=== PATIENT | male | born 1955 | race Caucasian/White ===

== ENCOUNTER 2018-11-02 20:36 | Observation (INO) ==
[2018-11-02] MEDS ORDERED: Isovue-370 500 ML BOTTLE IVP ONE (21:30)
[2018-11-02] MEDS ORDERED: 0.9 % Sodium Chloride 1,000 ML IVC ONE (21:45)
[2018-11-02 21:53] LABS: Basophils # 0.1 K/mcL (0.0-0.2); Basophils % 0.6 %; Eosinophils # 0.3 K/mcL (0.0-0.6); Hematocrit 46.3 % (37.5-50.1); Immature Granulocytes % 0.6 % (0-4); Lymphocytes # 4.3 K/mcL (0.6-4.6); Lymphocytes % 27.2 %; Mean Corpuscular HGB Conc 32.4 g/dL (31.6-35.5); Mean Corpuscular Hemoglobin 26.6 pg (28.0-33.3); Mean Corpuscular Volume 82.1 fL (83.0-100.0); Mean Platelet Volume 10.2 fL (9.4-12.4); Monocytes % 6.6 %; Neutrophils # 9.9 K/mcL (1.6-8.9); Platelet Count 376 K/mcL (140-400); Red Blood Count 5.64 M/mcL (4.19-5.50); Red Cell Distribution Width 13.7 % (11.5-14.5); White Blood Count 15.7 K/mcL (4.3-11.1)
[2018-11-02 22:14] LABS: BUN/Creatinine Ratio 15 (6-26); Blood Urea Nitrogen 13 mg/dL (8-23); Calcium 9.8 mg/dL (8.6-10.3); Carbon Dioxide 25 mEq/L (23-29); Chloride 101 mEq/L (98-107); Glucose 182 mg/dL (70-105); Osmolality,Calculated 287 (280-300); Potassium 3.3 mEq/L (3.5-5.1); Sodium 136 mEq/L (136-145); Troponin I < 0.03 ng/mL (< 0.04); eGFR For African Americans > 60 (> 60); eGFR For Non-African Americans > 60 (> 60)
[2018-11-03] MEDS ORDERED: *HR* FentaNYL (PF) 100 MCG/2 ML VIAL IVP ONE (00:10)
[2018-11-03] MEDS ORDERED: Ondansetron 4 MG/2 ML VIAL IVP ONE (00:10)
[2018-11-03] MEDS ORDERED: Nitroglycerin 0.4 MG TAB.SUBL SL PRN (00:20)
[2018-11-03] MEDS ORDERED: Aspirin 325 MG TABLET PO ONE (00:20)
[2018-11-03] MEDS ORDERED: D5% in Water 1,000 ML IVC PRN (02:56)
[2018-11-03] MEDS ORDERED: Dextrose Gel 15 GM/37.5 ML TUBE PO PRN ×2 (02:56)
[2018-11-03] MEDS ORDERED: Acetaminophen 325 MG TABLET PO PRN (02:56)
[2018-11-03] MEDS ORDERED: Naloxone 0.4 MG/ML INJ IVP PRN (02:56)
[2018-11-03] MEDS ORDERED: *HR* Dextrose 50 % in Water (Syg) 50 ML SYRINGE IVP PRN (02:56)
[2018-11-03] MEDS ORDERED: 0.9 % Sodium Chloride w KCl 20 MEQ/1,000 ML MLS IVC SCH (03:00)
[2018-11-03] MEDS ORDERED: *HR* OxyCODONE Immed Rel 15 MG TABLET PO PRN (03:02)
[2018-11-03] MEDS: clonazePAM 1 MG TABLET PO SCH ×2 (03:40→12:47)
[2018-11-03 04:51] LABS: Basophils # 0.1 K/mcL (0.0-0.2); Basophils % 0.5 %; Eosinophils # 0.2 K/mcL (0.0-0.6); Eosinophils % 1.4 %; Hematocrit 41.6 % (37.5-50.1); Immature Granulocytes % 0.5 % (0-4); Lymphocytes # 3.9 K/mcL (0.6-4.6); Mean Corpuscular HGB Conc 31.5 g/dL (31.6-35.5); Mean Corpuscular Volume 82.5 fL (83.0-100.0); Mean Platelet Volume 9.6 fL (9.4-12.4); Monocytes % 5.9 %; Neutrophils # 11.7 K/mcL (1.6-8.9); Platelet Count 349 K/mcL (140-400); Red Blood Count 5.04 M/mcL (4.19-5.50); Red Cell Distribution Width 13.6 % (11.5-14.5); Segmented Neutrophils % 68.7 %
[2018-11-03 04:58] LABS: Hemoglobin 13.1 g/dL (12.9-16.9)
[2018-11-03 05:07] LABS: Alanine Aminotransferase 9 Units/L (7-52); Albumin 3.7 g/dL (3.5-5.7); Albumin/Globulin Ratio 1.3 (1.1-2.2); Alkaline Phosphatase 51 Units/L (34-104); Aspartate Amino Transferase 12 Units/L (13-39); BUN/Creatinine Ratio 25 (6-26); Bilirubin,Total 0.2 mg/dL (0.3-1.0); Blood Urea Nitrogen 16 mg/dL (8-23); Calcium 8.9 mg/dL (8.6-10.3); Carbon Dioxide 24 mEq/L (23-29); Chloride 105 mEq/L (98-107); Chol/HDL Ratio 4.5 (0-4.9); Cholesterol 167 mg/dL (< 200); Globulin 2.8 g/dL (2.4-3.5); Glucose 98 mg/dL (70-105); HDL Cholesterol 37 mg/dL (40-59); LDL Cholesterol,Calculated 115 mg/dL (0-99); Magnesium 1.7 mg/dL (1.6-2.6); Osmolality,Calculated 283 (280-300); Potassium 3.7 mEq/L (3.5-5.1); Sodium 136 mEq/L (136-145); Total Protein 6.5 g/dL (6.4-8.9); Triglycerides 74 mg/dL (< 150); eGFR For African Americans > 60 (> 60); eGFR For Non-African Americans > 60 (> 60)
[2018-11-03 05:09] LABS: INR 1.2; Prothrombin Time 13.6 Seconds (9.4-12.1)
[2018-11-03] MEDS: Insulin LISPRO 300 UNITS/3 ML VIAL SQ SCH ×2 (05:39→12:51)
[2018-11-03] MEDS ORDERED: Gabapentin 400 MG CAPSULE PO SCH (09:00)
[2018-11-03] MEDS ORDERED: *HR* Rivaroxaban 15 MG TABLET PO SCH (09:00)
[2018-11-03 09:17] LABS: Estimated Average Glucose 278 mg/dl
[2018-11-03] MEDS ORDERED: Regadenoson 0.4 MG/5 ML SYRINGE IVP ONE ×2 (10:51→11:15)
[2018-11-03 15:24] VITALS: BP 134/78
== END 2018-11-03 16:06 | disposition home or self-care (01) ==
LOC: 3BNU 20:36 → EMEROOARM 20:36 → 3BNU 11-03 02:30
PROVIDERS: ADMIT Internal Medicine Nephrology; ATTEND Internal Medicine Nephrology

== ENCOUNTER 2019-12-07 11:03 | Inpatient (IN) ==
[~2019-12-07 11:03] MED LIST: Acetaminophen IV 1,000 MG/100 ML INFUS..BTL IVPB ONE; Famotidine 20 MG/2 ML VIAL IVP ONE; Gabapentin 300 MG CAPSULE PO ONE; Vancomycin 1,500 MG/265 ML IV.SOLN IVPB ONE
[2019-12-07] MEDS ORDERED: *HR* Succinylcholine 200 MG/10 ML VIAL IVP ONE (11:39)
[2019-12-07] MEDS ORDERED: *HR* FentaNYL (PF) 100 MCG/2 ML VIAL ONE (11:39)
[2019-12-07] MEDS ORDERED: Dexamethasone 4 MG/ML VIAL ONE (11:39)
[2019-12-07] MEDS ORDERED: Lidocaine -MPF 2% 2 ML VIAL ONE (11:39)
[2019-12-07] MEDS ORDERED: *HR* Propofol 200 MG/20 ML VIAL IVP ONE ×2 (11:39→14:23)
[2019-12-07] MEDS ORDERED: Lidocaine HCL 4 ML Topical Solution (Laryng-O-Jet Kit Sterile Pak) TP ONE (11:39)
[2019-12-07] MEDS ORDERED: Ondansetron 4 MG/2 ML VIAL ONE (11:39)
[2019-12-07] MEDS ORDERED: *HR* HYDROmorphone (PF) 1 MG/ML SYRINGE IVP PRN (11:43)
[2019-12-07] MEDS ORDERED: *HR* PHENYLEPHRINE 1,000 MCG/10 ML SYRINGE IVP ONE ×2 (11:43→13:49)
[2019-12-07] MEDS ORDERED: Ondansetron 4 MG/2 ML VIAL IVP PRN ×2 (11:43→15:13)
[2019-12-07] MEDS ORDERED: *HR* Labetalol 20 MG/4 ML SYRINGE IVP PRN (11:43)
[2019-12-07] MEDS ORDERED: *HR* Promethazine 25 MG/ML VIAL IVP PRN (11:43)
[2019-12-07] MEDS ORDERED: *HR* OxyCODONE Immed Rel 5 MG TABLET PO PRN (11:43)
[2019-12-07] MEDS ORDERED: Ringers Solution, Lactated 1,000 ML IVC SCH (11:45)
[2019-12-07] MEDS ORDERED: Famotidine 20 MG/2 ML VIAL IVP ONE (12:00)
[2019-12-07] MEDS ORDERED: Acetaminophen IV 1,000 MG/100 ML INFUS..BTL IVPB ONE (12:00)
[2019-12-07] MEDS ORDERED: Gabapentin 300 MG CAPSULE PO ONE (12:00)
[2019-12-07] MEDS ORDERED: *HR* Midazolam HCl 2 MG/2 ML VIAL ONE (12:52)
[2019-12-07] MEDS ORDERED: Ropivacaine/PF 0.5% 30 ML VIAL ONE (12:56)
[2019-12-07] MEDS ORDERED: ROPIVACAINE/PF/NS 0.25% 1 EACH SYRINGE INTRAART ONE (12:56)
[2019-12-07] MEDS ORDERED: Dulaglutide [Trulicity] 1.5 MG SQ SCH (15:13)
[2019-12-07] MEDS ORDERED: D5% in Water 1,000 ML IVC PRN (15:13)
[2019-12-07] MEDS ORDERED: Naloxone 0.4 MG/ML INJ IVP PRN (15:13)
[2019-12-07] MEDS ORDERED: *HR* OxyCODONE/APAP 5/325 TABLET PO PRN (15:13)
[2019-12-07] MEDS ORDERED: *HR* Dextrose 50 % in Water (Vial) 50 ML VIAL IVP PRN (15:13)
[2019-12-07] MEDS ORDERED: MOM Conc 10 ML UD.LIQ PO PRN (15:13)
[2019-12-07] MEDS ORDERED: Sennosides 8.6 MG TABLET PO PRN (15:13)
[2019-12-07] MEDS ORDERED: Dextrose Gel 15 GM/37.5 ML TUBE PO PRN ×2 (15:13)
[2019-12-07 15:36] LABS: Hematocrit 42.5 % (37.5-50.1); Hemoglobin 13.6 g/dL (12.9-16.9)
[2019-12-07] MEDS: *HR* Enoxaparin 30 MG/0.3 ML SYRINGE SQ SCH (17:55)
[2019-12-07] MEDS: Insulin LISPRO 300 UNITS/3 ML VIAL SQ SCH ×2 (17:56→20:48)
[2019-12-07] MEDS ORDERED: *HR* Enoxaparin 30 MG/0.3 ML SYRINGE SQ SCH (18:00)
[2019-12-07] MEDS: *HR* OxyCODONE Immed Rel 5 MG TABLET PO PRN ×2 (18:19→22:18)
[2019-12-07] MEDS: clonazePAM 1 MG TABLET PO SCH (20:47)
[2019-12-07] MEDS: Gabapentin 400 MG CAPSULE PO SCH (20:47)
[2019-12-07] MEDS: Insulin DETEMIR 100 UNIT/ML X5UNITS SQ SCH (20:47)
[2019-12-08] MEDS ORDERED: Vancomycin 1,500 MG/265 ML IV.SOLN IVPB ONE
[2019-12-08] MEDS: *HR* OxyCODONE Immed Rel 5 MG TABLET PO PRN ×5 (02:51→21:29)
[2019-12-08] MEDS: *HR* Enoxaparin 30 MG/0.3 ML SYRINGE SQ SCH ×2 (05:15→17:20)
[2019-12-08 05:50] LABS: Hematocrit 43.2 % (37.5-50.1); Hemoglobin 14.1 g/dL (12.9-16.9)
[2019-12-08 06:03] LABS: BUN/Creatinine Ratio 27 (6-26); Blood Urea Nitrogen 14 mg/dL (8-23); Calcium 9.8 mg/dL (8.6-10.3); Carbon Dioxide 23 mEq/L (23-29); Chloride 99 mEq/L (98-107); Glucose 314 mg/dL (70-105); Osmolality,Calculated 286 (280-300); Potassium 4.3 mEq/L (3.5-5.1); Sodium 132 mEq/L (136-145); eGFR For African Americans > 60 (> 60); eGFR For Non-African Americans > 60 (> 60)
[2019-12-08] MEDS: clonazePAM 1 MG TABLET PO SCH ×2 (08:19→20:12)
[2019-12-08] MEDS: Insulin DETEMIR 100 UNIT/ML X5UNITS SQ SCH ×2 (08:19→20:14)
[2019-12-08] MEDS: Gabapentin 400 MG CAPSULE PO SCH ×3 (08:19→20:12)
[2019-12-08] MEDS: Insulin LISPRO 300 UNITS/3 ML VIAL SQ SCH ×4 (08:20→20:18)
[2019-12-08] MEDS: Ringers Solution, Lactated 1,000 ML IVC SCH (23:24)
[2019-12-09] MEDS: *HR* OxyCODONE Immed Rel 15 MG TABLET PO PRN ×3 (00:13→17:04)
[2019-12-09 03:31] LABS: Hematocrit 39.9 % (37.5-50.1); Hemoglobin 13.3 g/dL (12.9-16.9)
[2019-12-09 03:34] LABS: BUN/Creatinine Ratio 27 (6-26); Blood Urea Nitrogen 13 mg/dL (8-23); Calcium 9.1 mg/dL (8.6-10.3); Carbon Dioxide 27 mEq/L (23-29); Chloride 100 mEq/L (98-107); Glucose 63 mg/dL (70-105); Osmolality,Calculated 278 (280-300); Potassium 3.4 mEq/L (3.5-5.1); Sodium 135 mEq/L (136-145); eGFR For African Americans > 60 (> 60); eGFR For Non-African Americans > 60 (> 60)
[2019-12-09] MEDS: *HR* OxyCODONE Immed Rel 5 MG TABLET PO PRN ×4 (04:28→20:14)
[2019-12-09] MEDS: *HR* Enoxaparin 30 MG/0.3 ML SYRINGE SQ SCH ×2 (05:52→18:01)
[2019-12-09] MEDS: Gabapentin 400 MG CAPSULE PO SCH ×3 (07:39→20:14)
[2019-12-09] MEDS: clonazePAM 1 MG TABLET PO SCH ×2 (07:40→20:14)
[2019-12-09] MEDS: Insulin LISPRO 300 UNITS/3 ML VIAL SQ SCH ×4 (07:55→22:17)
[2019-12-09] MEDS: Insulin DETEMIR 100 UNIT/ML X5UNITS SQ SCH ×2 (17:53→22:17)
[2019-12-09 19:36] LABS: Adenovirus Not Detected (Not Detect); Bordetella Pertussis Not Detected (Not Detect); Chlamydophila pneumoniae Not Detected (Not Detect); Coronavirus 229E Not Detected (Not Detect); Coronavirus HKU1 Not Detected (Not Detect); Coronavirus NL63 Not Detected (Not Detect); Coronavirus OC43 Not Detected (Not Detect); Human Metapneumovirus Not Detected (Not Detect); Human Rhinovirus/Enterovirus Not Detected (Not Detect); Influenza A Subtype 2009 H1 Not Detected (Not Detect); Influenza B Not Detected (Not Detect); Mycoplasma pneumoniae Not Detected (Not Detect); Parainfluenza Virus 1 Not Detected (Not Detect); Parainfluenza Virus 2 Not Detected (Not Detect); Parainfluenza Virus 3 Not Detected (Not Detect); Parainfluenza Virus 4 Not Detected (Not Detect); Respiratory Syncytial Virus Not Detected (Not Detect)
[2019-12-10] MEDS: *HR* OxyCODONE Immed Rel 5 MG TABLET PO PRN ×3 (03:12→15:29)
[2019-12-10] MEDS: *HR* Enoxaparin 30 MG/0.3 ML SYRINGE SQ SCH (06:19)
[2019-12-10] MEDS: *HR* OxyCODONE Immed Rel 15 MG TABLET PO PRN ×2 (06:19→12:58)
[2019-12-10] MEDS: clonazePAM 1 MG TABLET PO SCH (08:44)
[2019-12-10] MEDS: Gabapentin 400 MG CAPSULE PO SCH (08:44)
[2019-12-10] MEDS: Insulin DETEMIR 100 UNIT/ML X5UNITS SQ SCH (08:45)
[2019-12-10] MEDS: Insulin LISPRO 300 UNITS/3 ML VIAL SQ SCH ×2 (08:46→12:58)
[2019-12-10 10:29] VITALS: BP 129/73
[2019-12-10] MEDS: Ringers Solution, Lactated 1,000 ML IVC SCH (16:06)
== END 2019-12-10 16:14 | DRG 483 ==
LOC: SAMDAY 11:03 → 3NENU 15:04
PROVIDERS: ADMIT Orthopaedic Surgery; ATTEND Orthopaedic Surgery